=== PATIENT | male | born 1975 | race Caucasian/White ===

== ENCOUNTER → 2018-06-02 09:28 | Outpatient (CLI) | payer OTHER, SELFPAY | PROVIDERS: PCP Physician Assistant; Visit Provider Physician Assistant | DX: M25.449 Effusion, unspecified hand (principal) | CPT/HCPCS: 87070; 87075; 87147; 87186; 89060 ==

== ENCOUNTER → 2020-11-24 10:02 | Outpatient (CLI) | payer BC, SELFPAY ==
[2020-11-24] MEDS: COVID-19 VACC, Ad26(JANSSEN)/PF 0.5 ML IM (10:09)
== END ==
PROVIDERS: Visit Provider Internal Medicine
DX: Z23 Encounter for immunization (principal)
CPT/HCPCS: 0031A; 91303

== ENCOUNTER → 2021-09-06 12:15 | Outpatient (CLI) | payer BC, SELFPAY ==
[2021-09-06 13:15] LABS: Add Manual Diff / Slide Review NO; Basophils Absolute Auto 0 /uL (0-100); Basophils Percent Auto 0.7 % (0-2); Eosinophils Absolute Auto 200 /uL (0-450); Hematocrit 42.1 % (41-53); Hemoglobin 14.6 g/dL (13.5-17.5); Lymphocytes Absolute Auto 2500 /uL (1100-4500); Lymphocytes Percent Auto 36.2 % (25-40); Mean Corpuscular HGB Conc 34.8 % (30-36); Mean Corpuscular Hemoglobin 30.8 PG (26-34); Mean Corpuscular Volume 88.5 fL (80-100); Monocytes Absolute Auto 500 /uL (0-900); Monocytes Percent Auto 6.9 % (3-14); Neutrophils Absolute Auto 3700 /uL (1500-7000); Neutrophils Percent Auto 53.2 % (50-75); Platelet Count 188 X10^3/uL (150-400); Red Blood Cell Count 4.75 X10^6/uL (4.5-5.9); Red Cell Distribution Width 13.3 % (11.6-14.8); White Blood Cell Count 6.9 X10^3/uL (4.5-11.0)
== END ==
PROVIDERS: PCP Physician Assistant; Referring Provider Physician Assistant; Visit Provider Physician Assistant
DX: R79.9 Abnormal finding of blood chemistry, unspecified (principal)
CPT/HCPCS: 36415; 85025

== ENCOUNTER → 2021-09-13 11:04 | Outpatient (CLI) | payer BC, SELFPAY ==
--- NOTE | 2021-09-13 11:25 | DI.CT.S_ITS ---
PROCEDURE: CT KIDNEY URETER BLADDER (KUB) INDICATIONS: Gross hematuria TECHNIQUE: Axial sections were acquired from the lung bases to the pubic symphysis. Coronal and sagittal reformats were performed. For radiation dose reduction, the following was used: automated exposure control, adjustment of mA and/or kV according to patient size. COMPARISON: None. FINDINGS: Image quality: Excellent. Lung bases: Unremarkable. Heart: No significant findings. URINARY: Right Kidney: No stones or hydronephrosis. There is a low-density lesion seen within the right mid kidney that measures 1 cm and 6 Hounsfield units. Right Ureter: No hydroureter. Left Kidney: No stones or hydronephrosis. Left Ureter: No hydroureter. Bladder: Normal wall thickness. No stones. ABDOMEN: Liver: Unremarkable. Gallbladder: Numerous gallstones are seen within the gallbladder. Biliary ducts: Unremarkable. Pancreas: Unremarkable. Spleen: Unremarkable. Adrenal Glands: Unremarkable. Stomach and Bowel: Stomach, small bowel loops, and colon are unremarkable. Peritoneum: No abnormal intraperitoneal fluid. No free air. Ventral Wall: There is a fat containing periumbilical hernia seen. Abdominal Nodes: No enlarged retroperitoneal or mesenteric lymph nodes. Vessels: Aorta and inferior vena cava are normal in size. PELVIS: Pelvic Organs: Unremarkable. Pelvic Nodes: Unremarkable. Miscellaneous: Moderate to prominent bilateral fat containing inguinal hernias are seen, right larger than left. Bones: Degenerative changes are seen throughout, which are worst involving the lower lumbar spine. IMPRESSION: No findings of kidney stones or obstructive uropathy can be seen. A cause of hematuria is not identified to the limits of this noncontrast study. There is a likely right renal cyst, which is incompletely evaluated without contrast. For further evaluation of the patient's presenting history of hematuria, please consider a dedicated hematuria protocol CT without and with contrast (assuming that there is no contraindication). Incidental note is made of: Numerous gallstones Fat containing periumbilical hernia Bilateral fat containing inguinal hernias Dictated by: Kelechi Salazar M.D. on 09/13/2021 at 11:23 Approved by: Kelechi Salazar M.D. on 09/13/2021 at 11:26
== END ==
PROVIDERS: PCP Physician Assistant; Referring Provider Physician Assistant; Visit Provider Physician Assistant
DX: R31.0 Gross hematuria (principal); K80.20 Calculus of gallbladder without cholecystitis without obstruction; K40.20 Bilateral inguinal hernia, without obstruction or gangrene, not specified as recurrent; K42.9 Umbilical hernia without obstruction or gangrene
CPT/HCPCS: 74176

== ENCOUNTER 2024-03-31 10:58 | Day surgery (SDC) | payer OTHER, SELFPAY ==
[2024-03-26 13:36] VITALS: BMI 37.6
[2024-03-31] VITALS (8 sets, daily range): BP systolic 126–146; BP diastolic 77–92; PULSE 56–89; RESP 11–20; TEMP 36.1–36.4; O2SAT 92–99; BMI 36.3
[2024-03-31] MEDS: LACTATED RINGERS 1,000 ML 42 ML IV (11:52)
[2024-03-31] MEDS: ACETAMINOPHEN 325 MG TABLET 975 MG PO (11:54)
--- NOTE | 2024-03-31 11:55 | PM.PREOP ---
Pre-operative Note COVID-19 COVID-19 status: Not tested Interval Note History & Physical reviewed/Exam performed by Physician: Yes Changes to H&P: No ASA Class (for procedural sedation): II
[2024-03-31] MEDS: CEFAZOLIN VIAL 3 GM in SODIUM CHLORIDE 0.9% 100 ML IV (12:52)
--- NOTE | 2024-03-31 13:02 | SUR.OPER ---
Supine on padded OR bed, head on pillow, arms secured on padded arm boards at <90 degrees abduction, legs uncrossed, safety belt at thigh, tape over blanket over lower legs.
[2024-03-31] MEDS: BUPIVACAINE 0.5% (PF) 30 ML, EPINEPHrine 0.15 MG INJ (13:11)
--- NOTE | 2024-04-15 11:19 | PM.OP.1 ---
Operative Date/Time/Diagnoses Date of procedure: 03/31/24 Time of procedure: 12:45 Pre-op diagnosis: Umbilical hernia Post-op diagnosis: same Procedure & Clinicians Procedure: Open umbilical hernia repair with mesh Same procedure as scheduled: Yes Surgeon: [employer] Driver: Zhou Ghosh Anesthesia Type: General Operative Notes Procedure in detail: Ancef was administered. The patient was brought to the operating room, placed on the table in the supine position and general endotracheal anesthesia was induced. The abdomen was prepped and draped in the usual fashion. A time-out was performed. A 6 cm curvilinear incision was made inferior to the umbilicus. The hernia sac was dissected free from the surrounding subcutaneous adipose tissue. The sac was dissected off the umbilical stalk using a combination of cautery, sharp and blunt dissection. The hernia sac was dissected free from the fascial ring and allowed to drop back down into the abdomen. The fascial defect was approximately 5 cm. The fascia was then closed transversely with multiple interrupted 0 Ethibond sutures. The subcutaneous adipose tissue was cleared off of the anterior sheath circumferentially about 2 cm in each direction. A piece of polypropylene mesh was trimmed to fit over the fascial closure and secured with Tisseel. Once the Tisseel was dried the umbilical skin was tacked down to the mesh with a single 3-0 Vicryl stitch. The skin was closed with multiple interrupted 3-0 Vicryl dermal sutures followed by a running 4 Monocryl subcuticular closure. EBL: 20 mL Steri-Strips were applied and an abdominal binder was applied. Zhou TURNER provided assistance with exposure, retraction and closure of incisions. Post-operative Condition: stable Disposition: PACU
== END 2024-03-31 15:30 | disposition home or self-care (01) ==
PROVIDERS: Referring Provider Surgery; Visit Provider Surgery
PROC: (CPT 49593; principal; 2024-03-31 12:45)
DX: K42.9 Umbilical hernia without obstruction or gangrene (principal)
CPT/HCPCS: 49593; J0171; J0330; J0690; J1100; J1885; J2405; J2704; J3010

== ENCOUNTER 2024-08-13 21:12 | Emergency (ER) | payer BC, SELFPAY ==
[2024-08-13 21:15] VITALS: BP 148/96; PULSE 100; RESP 20; TEMP 36.9; O2SAT 96; BMI 36.2
--- NOTE | 2024-08-13 21:23 | DI.RAD.S_ITS ---
PROCEDURE: XR FINGER LT MIN 2V INDICATIONS: laceration/injury to thumb with metal TECHNIQUE: AP hand, 2 views of the 1st finger(s) acquired. COMPARISON: None. FINDINGS: Bones: No fractures or dislocations. No suspicious bony lesions. Soft tissues: No suspicious soft tissue calcifications. No radiopaque foreign body. IMPRESSION: No visualized acute fracture or dislocation. However, if clinical concern and/or pain persist, short interval imaging followup in 7-10 days is recommended, as occult injury cannot be definitively excluded. No radiopaque foreign body. Dictated by: Lulú Ellis M.D. on 08/13/2024 at 21:58 Approved by: Lulú Ellis M.D. on 08/13/2024 at 21:58
== END 2024-08-13 22:11 | disposition left against medical advice (07) ==
PROVIDERS: Emergency Provider Emergency Medicine; PCP Surgery
DX: S61.012A Laceration without foreign body of left thumb without damage to nail, initial encounter (principal); W20.8XXA Other cause of strike by thrown, projected or falling object, initial encounter
CPT/HCPCS: 73140; 99281